=== PATIENT | female | born 1995 | race American Indian/Alaskan Native ===

== ENCOUNTER 2018-07-27 16:45 | Inpatient (IN) | payer OTHER ==
[2018-07-27] MEDS ORDERED: Sodium Chloride 0.9% 1,000 ML IV ONE (17:22)
[2018-07-27 17:31] LABS: BASO % 0.3 % (0.0-2.0); LYMPH # 1.6 K/uL (1.0-4.3); LYMPH % 11.2 % (20.0-40.0); MEAN CELL VOLUME 88.9 fL (81.0-99.0); MEAN CORPUSCULAR HEMOGLOBIN 29.7 pg (27.0-31.0); MEAN CORPUSCULAR HGB CONC 33.5 g/dL (33.0-37.0); MEAN PLATELET VOLUME 7.4 fL (7.2-11.7); MONO # 0.5 K/uL (0.0-0.8); MONO % 3.7 % (0.0-10.0); NEUT # 11.7 K/uL (1.8-7.0); NEUT % 84.8 % (50.0-75.0); RBC 4.38 Mil/uL (3.80-5.20); RED CELL DISTRIBUTION WIDTH 13.7 % (11.5-14.5); WHITE BLOOD COUNT 13.8 K/uL (4.8-10.8)
[2018-07-27 17:44] LABS: ALB/GLOB RATIO 1.2 (1.0-2.1); ALBUMIN 4.3 g/dL (3.5-5.0); ALT/SGPT 14 U/L (9-52); AST/SGOT 17 U/L (14-36); BLOOD UREA NITROGEN 9 mg/dL (7-17); CALCIUM 9.5 mg/dl (8.6-10.4); GFR NON-AFRICAN AMERICAN > 60; LIPASE 57 U/L (23-300)
--- NOTE | 2018-07-27 18:22 | C.PDOC ---
History Of Present Illness 23 y/o female presents to the ED with complaints of right-sided abdominal pain associated with nausea, vomiting, and chills. She had an episode on Thursday which resolved that day, then another episode on Thursday which resolved. Pain then recurred today prompting patient to come in for evaluation. She denies any associated diarrhea, dysuria, urinary frequency, or vaginal discharge. Of note, patient states started her menses today. No sick contacts. No recent travel. Denies hx of prior similar pain in the past. <Giuliana Shea - Last Filed: 07/27/18 18:44> History Per: Patient History/Exam Limitations: no limitations Onset/Duration Of Symptoms: Hrs, Intermittent Episodes Current Symptoms Are (Timing): Still Present Location Of Pain/Discomfort: RUQ, RLQ Associated Symptoms: Chills, Nausea, Vomiting Recent travel outside of the [place]: No Last Menstral Period: today <Giuliana Shea - Last Filed: 07/27/18 18:44> <Michelet Douglas - Last Filed: 07/27/18 20:21> Time Seen by Provider: 07/27/18 17:02 Chief Complaint (Nursing): Abdominal Pain Past Medical History Reviewed: Historical Data, Nursing Documentation, Vital Signs Vital Signs: Last Vital Signs Temp 97.9 F 07/27/18 17:17 Pulse 84 07/27/18 17:17 Resp 20 07/27/18 17:17 BP 122/77 07/27/18 17:17 Pulse Ox 98 07/27/18 17:17 - Medical History PMH: No Chronic Diseases Other Surgeries: DNC Family History: States: No Known Family Hx - Social History Hx Alcohol Use: No Hx Substance Use: No - Immunization History Hx Tetanus Toxoid Vaccination: Yes Hx Influenza Vaccination: No <Giuliana Shea - Last Filed: 07/27/18 18:44> Vital Signs: Last Vital Signs Temp 97.9 F 07/27/18 17:17 Pulse 84 07/27/18 17:17 Resp 20 07/27/18 17:17 BP 122/77 07/27/18 17:17 Pulse Ox 98 07/27/18 18:48 <Michelet Douglas - Last Filed: 07/27/18 20:21> Review Of Systems Except As Marked, All Systems Reviewed And Found Negative. Constitutional: Positive for: Chills Respiratory: Negative for: Shortness of Breath Gastrointestinal: Positive for: Nausea, Vomiting, Abdominal Pain (right-sided). Negative for: Diarrhea, Hematochezia, Hematemesis Genitourinary: Positive for: Vaginal Bleeding (states currently menstruating). Negative for: Dysuria, Frequency, Vaginal Discharge Musculoskeletal: Negative for: Back Pain Neurological: Negative for: Dizziness <Giuliana Shea - Last Filed: 07/27/18 18:44> Physical Exam - Physical Exam Appears: Non-toxic, Other (uncomfortable) Skin: Normal Color, Warm, Dry Head: Atraumatic, Normacephalic Eye(s): bilateral: Normal Inspection, EOMI Nose: Normal Oral Mucosa: Moist Neck: Normal ROM, Supple Chest: Symmetrical Cardiovascular: Rhythm Regular, No Murmur Respiratory: Normal Breath Sounds, No Rales, No Rhonchi, No Wheezing Gastrointestinal/Abdominal: Soft, Tenderness (right-sided abominal and pelvic tenderness), No Distention, No Guarding Back: No CVA Tenderness, No Vertebral Tenderness Extremity: Bilateral: Atraumatic, Normal Color And Temperature, Normal ROM Neurological/Psych: Oriented x3, Normal Speech, Other (No focal deficits) <Giuliana Shea - Last Filed: 07/27/18 18:44> ED Course And Treatment - Laboratory Results Result Diagrams: 07/27/18 17:28 07/27/18 17:28 O2 Sat by Pulse Oximetry: 98 (RA) Pulse Ox Interpretation: Normal Progress Note: Blood work and urine sent to lab for analysis. CT abd/pelvis ordered with IV contrast. Patient treated with IV fluids, 30mg Toradol, and 4mg Zofran IVP. 17:22 Informed of (+) by RN, who completed urine POC. CT scan canceled. Patient notified of result. Pelvic/transvag ultrasound ordered. Case endorsed to Dr Douglas pending US and re-evaluation. <Giuliana Shea - Last Filed: 07/27/18 18:44> - Laboratory Results Result Diagrams: 07/27/18 17:28 07/27/18 17:28 Pulse Ox Interpretation: Normal Progress Note: 7:[address] coleman,material cutter, re: US finding. will come and see the patient. Spoke with the pt - is aware of the US diagnosis <Michelet Douglas - Last Filed: 07/27/18 20:21> Disposition - Disposition Disposition Time: 18:48 <JezGiuliana rodriguez - Last Filed: 07/27/18 18:44> Discussed With : Keiko Melendez - POA Present On Arrival: None <Michelet Douglas - Last Filed: 07/27/18 20:21> - Disposition Disposition: HOSPITALIZED Condition: FAIR Forms: [employer] ([place]ese) - Clinical Impression Clinical Impression: Abdominal pain, Ectopic - PA / PHOTOGRAPHER APPRENTICE / Resident Statement MD/DO has reviewed & agrees with the documentation as recorded. - Scribe Statement The provider has reviewed the documentation as recorded by the Scribe (Marisa Gramajo) All medical record entries made by the Scribe were at my direction and personally dictated by me. I have reviewed the chart and agree that the record accurately reflects my personal performance of the history, physical exam, medical decision making, and the department course for this patient. I have also personally directed, reviewed, and agree with the discharge instructions and disposition. <Giuliana Shea - Last Filed: 07/27/18 18:44> Decision To Admit <Giuliana Shea - Last Filed: 07/27/18 18:44> - Pt Status Changed To: Hospital Disposition Of: Inpatient - Admit Certification Admit to Inpatient:: After my assessment, the patient will require hosp italization for at least two midnights. This is because of the severity of symptoms shown, intensity of services needed, and/or the medical risk in this patient being treated as an outpatient. - InPatient: Physician Admission Certification:: After my assessment, the patient will require hospitalization for at least two midnights. This is because of the hunter rity of symptoms shown, intensity of services needed, and/or the medical risk in this patient being treated as an outpatient. - . Bed Request Type: Regular Admitting Physician: Keiko Melendez <Michelet Douglas - Last Filed: 07/27/18 20:21> - . Patient Diagnosis: Abdominal pain, Ectopic
[2018-07-27 18:33] LABS: SQUAMOUS EPITHIAL 5 /hpf (0-5); URINE BACTERIA RARE (<OCC); URINE BILIRUBIN NEGATIVE (NEGATIVE); URINE BLOOD 3+ (NEGATIVE); URINE CLARITY Hazy (Clear); URINE COLOR Yellow (YELLOW); URINE GLUCOSE (UA) NORMAL (Normal); URINE LEUKOCYTE ESTERASE NEG Leu/uL (Negative); URINE PROTEIN 1+ mg/dL (NEGATIVE); URINE UROBILINOGEN NORMAL mg/dL (0.2-1.0)
[2018-07-27 18:38] LABS: HCG,QUALITATIVE URINE POSITIVE (NEGATIVE)
[2018-07-27] MEDS ORDERED: ceFAZolin IV 2 gm in Dextrose 2 GM/50 ML BAG IVPB ONE (20:23)
[2018-07-27] MEDS ORDERED: Lactated Ringer's 1,000 ML IV SCH (20:30)
--- NOTE | 2018-07-27 20:32 | CP.PCM.HP ---
History of Present Illness - History of Present Illness History of Present Illness: 23 y.o. , LMP 06/19/15, normal, presented c/o worsening RLQ pain, pain scale 10/10 earlier today. Associated with nausea and vomiting -"I vomited all day long". Denies dizziness, lightheadedness or loss of consciousness. Just fo und out about being in E.D. Pain first onset last Thursday; came and left. Occurred again Thursday - similar, short lasting. Returned today. USG: no IUP, right adnexal mass, (+) free fluid.. quantitative HCG 1866.9 mIU. 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 Denies STIs. Last pap 01/22/17 - negative PMH: denies PSH: D&C x 2 NKDA Food allergies: mushroom and peanuts - conjunctivitis Meds: none Soc (+) cigar - one a day. (+) marijuana - 3 times a day. Occ EtOH use. Lives with boyfriend; together "little over 1 year". Works at [employer] Hx: Mother alive 60 - asthma. Father approx 70s - DM. One mat aunt - breast cancer. Present on Admission - Present on Admission Any Indicators Present on Admission: No Review of Systems - Review of Systems All systems: reviewed and no additional remarkable complaints except - Reproductive: Female Reproductive:Female: As Per HPI Past Patient History - Infectious Disease Hx of Infectious Diseases: None - Past Social History Smoking Status: Light Smoker < 10 Cigarettes Daily Cigar Use: Yes Alcohol: Occasional Drugs: Cannabis Home Situation {Lives}: Friends Domestic Violence: Negative - CARDIAC Hx Cardiac Disorders: No - PULMONARY Hx Respiratory Disorders: No - NEUROLOGICAL Hx Neurological Disorder: No - HEENT Hx HEENT Problems: No - RENAL Hx Chronic Kidney Disease: No - ENDOCRINE/METABOLIC Hx Endocrine Disorders: No - HEMATOLOGICAL/ONCOLOGICAL Hx Blood Disorders: No - INTEGUMENTARY Hx Dermatological Problems: No - MUSCULOSKELETAL/RHEUMATOLOGICAL Hx Musculoskeletal Disorders: No - GASTROINTESTINAL Hx Gastrointestinal Disorders: No - GENITOURINARY/GYNECOLOGICAL Hx Genitourinary Disorders: No - PSYCHIATRIC Hx Psychophysiologic Disorder: No Hx Substance Use: No - SURGICAL HISTORY Hx Surgeries: Yes Hx Dilation and Curettage: Yes (2017 x 2) - ANESTHESIA Hx Anesthesia: Yes Meds Allergies/Adverse Reactions: Allergies Allergy/AdvReac Type Severity Reaction Status Date / Time mushroom Allergy Verified 07/27/18 16:55 nut - unspecified Allergy Verified 07/27/18 16:55 Physical Exam - Constitutional Appears: Well, No Acute Distress - Head Exam Head Exam: NORMAL INSPECTION - Eye Exam Eye Exam: Normal appearance - ENT Exam ENT Exam: Mucous Membranes Moist - Neck Exam Neck exam: Positive for: Full Rom - Respiratory Exam Respiratory Exam: NORMAL BREATHING PATTERN - Cardiovascular Exam Cardiovascular Exam: REGULAR RHYTHM - GI/Abdominal Exam GI & Abdominal Exam: Normal Bowel Sounds, Soft ((+) RLQ rebound tenderenss) - Exam Additional comments: Deferred to the O.R. - Back Exam Back exam: NORMAL INSPECTION - Neurological Exam Neurological exam: Alert, Oriented x3 - Psychiatric Exam Psychiatric exam: Normal Affect, Normal Mood - Skin Skin Exam: Dry, Intact, Normal Color, Warm Results - Vital Signs Recent Vital Signs: Last Vital Signs Temp 97.9 F 07/27/18 17:17 Pulse 84 07/27/18 17:17 Resp 20 07/27/18 17:17 BP 122/77 07/27/18 17:17 Pulse Ox 98 07/27/18 18:48 - Labs Result Diagrams: 07/27/18 17:28 07/27/18 17:28 Labs: Laboratory Results - last 24 hr 07/27/18 07/27/18 07/27/18 17:28 17:28 18:21 WBC 13.8 H RBC 4.38 Hgb 13.0 Hct 38.9 MCV 88.9 MCH 29.7 MCHC 33.5 RDW 13.7 Plt Count 376 MPV 7.4 Neut % (Auto) 84.8 H Lymph % (Auto) 11.2 L [place] % (Auto) 3.7 Eos % (Auto) 0.0 Baso % (Auto) 0.3 Neut # (Auto) 11.7 H Lymph # (Auto) 1.6 [place] # (Auto) 0.5 Eos # (Auto) 0.0 Baso # (Auto) 0.0 Sodium 138 Potassium 4.2 Chloride 103 Carbon Dioxide 23 Anion Gap 16 BUN 9 Creatinine 0.7 Est GFR ( Amer) > 60 Est GFR (Non-Af Amer) > 60 Random Glucose 117 H Calcium 9.5 Total Bilirubin 0.7 AST 17 ALT 14 Alkaline Phosphatase 73 Total Protein 7.7 Albumin 4.3 Globulin 3.5 Albumin/Globulin Ratio 1.2 Lipase 57 Beta HCG, Quant Urine Color Yellow Urine Clarity Hazy Urine pH 5.0 Ur Specific [place] 1.019 Urine Protein 1+ H Urine Glucose (UA) Normal Urine Ketones 1+ H Urine Blood 3+ H Urine Nitrate Negative Urine Bilirubin Negative Urine Urobilinogen Normal Ur Leukocyte Esterase Neg Urine WBC (Auto) 9 H Urine RBC (Auto) 274 H Ur Squamous Epith Cells 5 Urine Bacteria Rare Urine HCG, Qual Positive Blood Type Antibody Screen 07/27/18 07/27/18 18:35 18:35 WBC RBC Hgb Hct MCV MCH MCHC RDW Plt Count MPV Neut % (Auto) Lymph % (Auto) [place] % (Auto) Eos % (Auto) Baso % (Auto) Neut # (Auto) Lymph # (Auto) [place] # (Auto) Eos # (Auto) Baso # (Auto) Sodium Potassium Chloride Carbon Dioxide Anion Gap BUN Creatinine Est GFR ( Amer) Est GFR (Non-Af Amer) Random Glucose Calcium Total Bilirubin AST ALT Alkaline Phosphatase Total Protein Albumin Globulin Albumin/Globulin Ratio Lipase Beta HCG, Quant 1866.90 Urine Color Urine Clarity Urine pH Ur Specific [place] Urine Protein Urine Glucose (UA) Urine Ketones Urine Blood Urine Nitrate Urine Bilirubin Urine Urobilinogen Ur Leukocyte Esterase Urine WBC (Auto) Urine RBC (Auto) Ur Squamous Epith Cells Urine Bacteria Urine HCG, Qual Blood Type O POSITIVE Antibody Screen Negative Assessment & Plan - Assessment and Plan (Free Text) Assessment: 28 y.o. G3 [id number], right ectopic . D/W patient surgical management: R/B/C reviewed. Patient expressed an understanding and agrees with plan. No questions offered. Consents signed, dated, witnessed and placed in chart. Patient last ate last night. Patient is clinically stable Plan: Admit NPO IVFs Kefzol 2 grams wellness consultant to O.R. Patient wellness consultant to O.R. - Date & Time Date: 07/27/18 Time: 20:38
[2018-07-27] MEDS ORDERED: Doxycycline 100 mg Inj ONE (20:34)
[2018-07-27] MEDS ORDERED: Oxytocin 10 Units/ml Inj ONE (20:35)
[2018-07-27] MEDS ORDERED: Lactated Ringer's 1,000 ML ONE (20:49)
[2018-07-27] MEDS ORDERED: Midazolam 2 MG/2 ML VIAL ONE (21:01)
[2018-07-27] MEDS ORDERED: Propofol 10 mg/ml Inj (20 ML) ONE (21:01)
[2018-07-27] MEDS ORDERED: Rocuronium 10 mg/ml (5 ml) ONE (21:04)
[2018-07-27] MEDS ORDERED: Succinylcholine Chloride 20 mg/ml Syr (5 ml) IV ONE (21:04)
[2018-07-27] MEDS ORDERED: ceFAZolin IV 1 gm in Dextrose 2 GM/100 ML BAG IVPB ONE (21:19)
[2018-07-27] MEDS ORDERED: Lidocaine Hydrochloride 10 ML INJ ONE (21:46)
[2018-07-27] MEDS ORDERED: Esmolol 100 mg/10ml Inj IV ONE (22:07)
[2018-07-27] MEDS ORDERED: Neostigmine Methylsulfate 3mg/3ml Syringe IV ONE (22:09)
[2018-07-27] MEDS ORDERED: Bupivacaine 0.25% 20 ML INJ IJ ONE (22:32)
--- NOTE | 2018-07-27 23:02 | PCM.SURG1 ---
Surgeon's Initial Post Op Note - Surgeon's Notes Surgeon: Keiko Melendze MD Vice President Diversity: Jose Herrera MD; Aure Wooten MD, PGY-3 Type of Anesthesia: General Endo Anesthesia Administered By: Johnny Leigh MD Pre-Operative Diagnosis: Right ectopic Operative Findings: EUA: cervical os closed, AV uterus, 8 weeks, soft, mobile, normal left adnexa; mildly prominent right adnexa. At laparoscopy: right ectopic , approx 3 x 3 x 5 cm. approximate 100 mL hemoperitoneum. Normal left fallopian tube; normal ovaries bilaterally Normal upper abdominal organ; no perihepatic adhesions Post-Operative Diagnosis: Right ectopic Operation Performed: right partial salpingectomy Specimen/Specimens Removed: right fallopian tube with ectopic Estimated Blood Loss: EBL {In ML}: 100 (75 mL; IVfs 1800 mL LR) Blood Products Given: N/A Drains Used: No Drains Post-Op Condition: Good Date of Surgery/Procedure: 07/27/18 Time of Surgery/Procedure: 23:06
[2018-07-27] MEDS: HYDROmorphone 0.5 mg/0.5 ml ISec IVP PRN ×2 (23:26→23:40)
[2018-07-28] MEDS ORDERED: Lactated Ringer's 1,000 ML IV ONE
[2018-07-28 08:49] LABS: MEAN CELL VOLUME 89.3 fL (81.0-99.0); MEAN CORPUSCULAR HEMOGLOBIN 29.9 pg (27.0-31.0); MEAN CORPUSCULAR HGB CONC 33.5 g/dL (33.0-37.0); MEAN PLATELET VOLUME 7.9 fL (7.2-11.7); RBC 3.61 Mil/uL (3.80-5.20); RED CELL DISTRIBUTION WIDTH 13.7 % (11.5-14.5)
[2018-07-28 08:51] LABS: WHITE BLOOD COUNT 21.1 K/uL (4.8-10.8)
[2018-07-28 08:52] LABS: HEMOGLOBIN 10.8 g/dL (11.0-16.0)
--- NOTE | 2018-07-28 09:37 | US ---
Date of service: 07/27/2018 HISTORY: Abdominal pain COMPARISON: None available. TECHNIQUE: Transabdominal and transvaginal pelvic ultrasound was performed. FINDINGS: UTERUS: Measures 6.7 x 4.1 x 4.6 cm. Anteverted and normal in size. No fibroid or other mass lesion seen. ENDOMETRIUM: Measures 5.0 mm in diameter. The central endometrial echo complex is normal in appearance. No evidence of intrauterine gestational sac. CERVIX: No cervical abnormality identified. RIGHT OVARY: Measures 3.0 x 1.9 x 3 point cm. There is a 5.8 x 3.2 x 3.9 cm complex mass in the right adnexa with central round anechoic area and surrounding echogenic rim with peripheral increased vascularity. Normal flow. There is a 1.4 x 0.9 x 1.8 cm simple cyst. LEFT OVARY: Measures 2.6 x 1.8 x 2.4 cm. No solid mass. Normal flow. FREE FLUID: There is moderate complex/hemorrhagic fluid in the pelvis. OTHER FINDINGS: None. IMPRESSION: 5.8 x 3.2 x 3.9 cm complex mass with peripheral increased vascularity in the right adnexa and complex presumable hemorrhagic fluid in the pelvis, ectopic is a consideration. Clinical follow-up is advised. No evidence for intrauterine gestation. A preliminary report was provided by [facility].
[2018-07-28 10:33] VITALS: RESP 18
[2018-07-28 10:34] VITALS: TEMP 97; O2SAT 99
[2018-07-28] MEDS ORDERED: Oxycodone/Acetaminophen 5/325 mg Tab PO PRN ×2 (11:22→11:24)
[2018-07-28] MEDS: Simethicone 80 mg Chewtab PO SCH ×2 (11:59→18:38)
[2018-07-28 13:54] LABS: BASO # 0.1 K/uL (0.0-0.2); BASO % 0.3 % (0.0-2.0); EOS # 0.1 K/uL (0.0-0.7); EOS % 0.5 % (0.0-4.0); HEMOGLOBIN 10.1 g/dL (11.0-16.0); LYMPH # 4.1 K/uL (1.0-4.3); LYMPH % 23.9 % (20.0-40.0); MEAN CELL VOLUME 88.7 fL (81.0-99.0); MEAN CORPUSCULAR HEMOGLOBIN 30.2 pg (27.0-31.0); MEAN PLATELET VOLUME 7.9 fL (7.2-11.7); MONO # 1.2 K/uL (0.0-0.8); MONO % 7.1 % (0.0-10.0); NEUT # 11.7 K/uL (1.8-7.0); NEUT % 68.2 % (50.0-75.0); RBC 3.36 Mil/uL (3.80-5.20); RED CELL DISTRIBUTION WIDTH 13.9 % (11.5-14.5); WHITE BLOOD COUNT 17.2 K/uL (4.8-10.8)
--- NOTE | 2018-07-28 16:22 | RAD ---
Date of service: 07/28/2018 HISTORY: Rule out infiltrate COMPARISON: No prior. TECHNIQUE: Chest PA and lateral FINDINGS: LUNGS: No active pulmonary disease. PLEURA: No significant pleural effusion identified. No pneumothorax apparent. CARDIOVASCULAR: No aortic atherosclerotic calcification present Cardiac size appears normal. No pulmonary vascular derangement identified. OSSEOUS STRUCTURES: No significant abnormalities. VISUALIZED UPPER ABDOMEN: Normal. OTHER FINDINGS: None. IMPRESSION: No acute cardiopulmonary disease appreciated.
--- NOTE | 2018-07-28 16:37 | CP.PCM.PN ---
Addendum entered and electronically signed by Kenia Guthrie 07/28/18 16:55: Correction to to A/P: Patient to be discharge later this evening Original Note: Subjective - Date & Time of Evaluation Date of Evaluation: 07/28/18 Time of Evaluation: 07:00 - Subjective Subjective: Gynecology progress note ( dynamics ax developer Hospitalist service) Patient was seen and examined at bedside. Patient reports controlled pain with current pain medications. Patient denies fever, chills, chest pain, palpitations but admits to SOB, abdominal pain ( S/p right partial salpingectomy), nausea, passing flatus and bowel movement. Objective - Vital Signs/Intake and Output Vital Signs (last 24 hours): Temp Pulse Resp BP Pulse Ox 97 F L 67 18 102/71 99 07/28/18 08:00 07/28/18 08:00 07/28/18 08:00 07/28/18 08:00 07/28/18 08:00 Intake and Output: 07/28/18 07/28/18 06:59 18:59 Intake Total 3115 Output Total 600 Balance 2515 - Medications Medications: Current Medications Hydromorphone HCl (Dilaudid) 0.5 mg IVP Q15M PRN PRN Reason: Pain, severe (8-10) Last Admin: 07/27/18 23:40 Dose: 0.5 mg Lactated Ringer's (Lactated Ringer's) 1,000 mls @ 125 mls/hr IV .Q8H ROGELIO Last Admin: 07/27/18 20:52 Dose: 125 mls/hr Morphine Sulfate (Morphine) 4 mg IVP Q4 PRN PRN Reason: Pain, moderate (4-7) Last Admin: 07/28/18 06:35 Dose: 4 mg Ondansetron HCl (Zofran Inj) 4 mg IVP DAILY@ONCE PRN PRN Reason: Nausea/Vomiting Oxycodone/Acetaminophen (Percocet 5/325 Mg Tab) 1 tab PO Q6H PRN PRN Reason: Pain, moderate (4-7) Stop: 07/31/18 11:23 Last Admin: 07/28/18 11:59 Dose: 1 tab Oxycodone/Acetaminophen (Percocet 5/325 Mg Tab) 2 tab PO Q6H PRN PRN Reason: Pain, severe (8-10) Stop: 07/31/18 11:25 Simethicone (Mylicon Chew Tab) 80 mg PO Q6 ROGELIO Last Admin: 07/28/18 11:59 Dose: 80 mg - Labs Labs: 07/28/18 13:49 07/27/18 17:28 - Constitutional Appears: Well, No Acute Distress - Head Exam Head Exam: ATRAUMATIC, NORMAL INSPECTION - Eye Exam Eye Exam: EOMI, Normal appearance - ENT Exam ENT Exam: Mucous Membranes Moist - Respiratory Exam Respiratory Exam: Clear to Ausculation Bilateral, NORMAL BREATHING PATTERN. absent: Chest Wall Tenderness, Prolonged Expiratory Phase, Rhonchi, Wheezes - Cardiovascular Exam Cardiovascular Exam: REGULAR RHYTHM, +S1, +S2. absent: Murmur - GI/Abdominal Exam GI & Abdominal Exam: Soft, Tenderness, Normal Bowel Sounds Additional comments: Appropriately tender s/p right partial salpingectomy Incision is clean,dry and intact - Extremities Exam Extremities Exam: Normal Inspection. absent: Calf Tenderness, Full ROM, Pedal Edema - Back Exam Back Exam: NORMAL INSPECTION. absent: CVA tenderness (L), CVA tenderness (R) - Neurological Exam Neurological Exam: Alert, Awake, Normal Gait, Oriented x3 - Psychiatric Exam Psychiatric exam: Normal Affect - Skin Skin Exam: Normal Color Assessment and Plan (1) Ectopic Assessment & Plan: S/P Right partial salpingectomy POD #1 Warren discontinued, voiding trial Monitor for bowel function Encourage ambulation and incentive spirometer use Encourage hydration Pain control for with percocet and motrin prn H/H stable Plans for discharge tomorrow Plans and management discussed with Dr. Rivera Status: Acute
[2018-07-28 16:46] VITALS: BP 100/70; PULSE 68
--- NOTE | 2018-07-28 17:14 | CP.PCM.DIS ---
Provider - Provider Date of Admission: 07/27/18 20:20 Attending physician: Keiko Melendez MD Time Spent in preparation of Discharge (in minutes): 35 Diagnosis - Discharge Diagnosis (1) Ectopic Status: Acute Hospital Course - Lab Results Lab Results: Most Recent Lab Values WBC 17.2 K/uL (4.8-10.8) H 07/28/18 13:49 RBC 3.36 Mil/uL (3.80-5.20) L 07/28/18 13:49 Hgb 10.1 g/dL (11.0-16.0) L 07/28/18 13:49 Hct 29.8 % (34.0-47.0) L 07/28/18 13:49 MCV 88.7 fL (81.0-99.0) 07/28/18 13:49 MCH 30.2 pg (27.0-31.0) 07/28/18 13:49 MCHC 34.0 g/dL (33.0-37.0) 07/28/18 13:49 RDW 13.9 % (11.5-14.5) 07/28/18 13:49 Plt Count 285 K/uL (130-400) 07/28/18 13:49 MPV 7.9 fL (7.2-11.7) 07/28/18 13:49 Neut % (Auto) 68.2 % (50.0-75.0) 07/28/18 13:49 Lymph % (Auto) 23.9 % (20.0-40.0) 07/28/18 13:49 [place] % (Auto) 7.1 % (0.0-10.0) 07/28/18 13:49 Eos % (Auto) 0.5 % (0.0-4.0) 07/28/18 13:49 Baso % (Auto) 0.3 % (0.0-2.0) 07/28/18 13:49 Neut # (Auto) 11.7 K/uL (1.8-7.0) H 07/28/18 13:49 Lymph # (Auto) 4.1 K/uL (1.0-4.3) 07/28/18 13:49 [place] # (Auto) 1.2 K/uL (0.0-0.8) H 07/28/18 13:49 Eos # (Auto) 0.1 K/uL (0.0-0.7) 07/28/18 13:49 Baso # (Auto) 0.1 K/uL (0.0-0.2) 07/28/18 13:49 Differential Comment 07/28/18 08:15 Sodium 138 mmol/L (132-148) 07/27/18 17:28 Potassium 4.2 mmol/L (3.6-5.2) 07/27/18 17:28 Chloride 103 mmol/L (98-107) 07/27/18 17:28 Carbon Dioxide 23 mmol/L (22-30) 07/27/18 17:28 Anion Gap 16 (10-20) 07/27/18 17:28 BUN 9 mg/dL (7-17) 07/27/18 17:28 Creatinine 0.7 mg/dL (0.7-1.2) 07/27/18 17:28 Est GFR ( Amer) > 60 07/27/18 17:28 Est GFR (Non-Af Amer) > 60 07/27/18 17:28 POC Glucose (mg/dL) 84 mg/dL (65-110) 07/27/18 20:55 Random Glucose 117 mg/dL (65-105) H 07/27/18 17:28 Calcium 9.5 mg/dl (8.6-10.4) 07/27/18 17:28 Total Bilirubin 0.7 mg/dL (0.2-1.3) 07/27/18 17:28 AST 17 U/L (14-36) 07/27/18 17:28 ALT 14 U/L (9-52) 07/27/18 17:28 Alkaline Phosphatase 73 U/L (38-126) 07/27/18 17:28 Total Protein 7.7 g/dL (6.3-8.3) 07/27/18 17:28 Albumin 4.3 g/dL (3.5-5.0) 07/27/18 17:28 Globulin 3.5 gm/dL (2.2-3.9) 07/27/18 17:28 Albumin/Globulin Ratio 1.2 (1.0-2.1) 07/27/18 17:28 Lipase 57 U/L (23-300) 07/27/18 17:28 Beta HCG, Quant 1866.90 mIU/ML 07/27/18 18:35 Urine Color Yellow (YELLOW) 07/27/18 18:21 Urine Clarity Hazy (Clear) 07/27/18 18:21 Urine pH 5.0 (5.0-8.0) 07/27/18 18:21 Ur Specific [place] 1.019 (1.003-1.030) 07/27/18 18: Urine Protein 1+ mg/dL (NEGATIVE) H 07/27/18 18:21 Urine Glucose (UA) Normal mg/dL (Normal) 07/27/18 18: Urine Ketones 1+ mg/dL (NEGATIVE) H 07/27/18 18: Urine Blood 3+ (NEGATIVE) H 07/27/18 18:21 Urine Nitrate Negative (NEGATIVE) 07/27/18 18: Urine Bilirubin Negative (NEGATIVE) 07/27/18 18: Urine Urobilinogen Normal mg/dL (0.2-1.0) 07/27/18 18: Ur Leukocyte Esterase Neg [place]/uL (Negative) 07/27/18 18:21 Urine WBC (Auto) 9 /hpf (0-5) H 07/27/18 18:21 Urine RBC (Auto) 274 /hpf (0-3) H 07/27/18 18:21 Ur Squamous Epith Cells 5 /hpf (0-5) 07/27/18 18:21 Urine Bacteria Rare (<OCC) 07/27/18 18:21 Urine HCG, Qual Positive (NEGATIVE) 07/27/18 18: Blood Type O POSITIVE 07/27/18 18:35 Antibody Screen Negative 07/27/18 18:35 - Hospital Course Hospital Course: HPI (As per admission): 23 y.o. , LMP 06/19/15, normal, presented c/o worsening RLQ pain, pain scale 10/10 earlier today. Associated with nausea and vomiting -"I vomited all day long". Denies dizziness, lightheadedness or loss of consciousness. Just found out about being in E.D. Pain first onset last Thursday; came and left. Occurred again Thursday - similar, short lasting. Returned today. USG: no IUP, right adnexal mass, (+) free fluid.. quantitative HCG 1866.9 mIU. Hospital course: Patient was admitted with right ectopic , which was confirmed by pelvis US: 5.8 x 3.2 x 3.9 cm complex mass with peripheral increased vascularity in the right adnexa and complex presumable hemorrhagic fluid in the pelvis, ectopic is a consideration. Clinical follow-up is advised. No evidence for intrauterine gestation. Patient was arranged for the operating room with appropriate lab and team in place. Patient had a right partial salpingectomy without any complications. Patient remained stable post surgery with no acute issues. Patient was able to tolerate diet, void without any difficulties after Warren was removed and ambulated with some mild shortness breath, however, pulse ox was 98-100% on ambulation and chest x-ray was with no active cardiopulmonary issues. Patient was able to further ambulate again during a second round with no acute issues. Patient was discharged upon clearance with appropriate instructions and prescription. Discharge Exam - Head Exam Head Exam: ATRAUMATIC, NORMAL INSPECTION - Eye Exam Eye Exam: EOMI, Normal appearance - ENT Exam ENT Exam: Mucous Membranes Moist - Respiratory Exam Respiratory Exam: Clear to PA & Lateral, NORMAL BREATHING PATTERN. absent: Decreased Breath Sounds, Prolonged Expiratory Phase, Rales, Wheezes, Respiratory Distress - Cardiovascular Exam Cardiovascular Exam: REGULAR RHYTHM, +S1, +S2. absent: Tachycardia, Clicks, Diastolic murmur, Systolic Murmur - GI/Abdominal Exam GI & Abdominal Exam: Normal Bowel Sounds, Soft, Tenderness Additional comments: Appropriately tender s/p right partial salpingectomy Incision is clean,dry and intact - Extremities Exam Extremities exam: normal inspection - Back Exam Back exam: NORMAL INSPECTION. absent: CVA tenderness (L), CVA tenderness (R) - Neurological Exam Neurological exam: Alert, Normal Gait, Oriented x3 - Skin Skin Exam: Normal Color Discharge Plan - Discharge Medications Prescriptions: Ibuprofen [Motrin Tab] 800 mg PO Q6H PRN #15 tab PRN Reason: Pain, Moderate (4-7) - Follow Up Plan Condition: FAIR Disposition: HOME/ ROUTINE Instructions: Laparoscopy, Oophorectomy (DC), Ectopic (DC) Additional Instructions: Please discharge patient home Please follow up with your Tear Down Worker/Clinic in 1 week of discharge for incision check Please continue to hydrate, ambulate and no heavy lifting in 1-2 weeks Please take percocet and motrin for pain as needed Please return to the hospital if symptoms of abnormal abdominal pain, vaginal bleeding, abnormal vaginal discharge, fever, chills or nausea Please take care
[2018-07-28] MEDS ORDERED: Influenza Vaccine 60 MCG/0.5 ML SYR (3 yr & up) IM ONE (17:31)
--- NOTE | 2018-07-29 01:51 | OP ---
PROCEDURE DATE: 07/27/2018 SURGEON: Keiko Melendez MD COKE DRAWER: Jose Herrera MD SECOND FOOD PORTER: Aure Wooten DO, PGY-3 ANESTHESIOLOGIST: Johnny Leigh MD ANESTHESIA TYPE: General with endotracheal intubation. PREOPERATIVE DIAGNOSIS: Right ectopic . POSTOPERATIVE DIAGNOSIS: Right ectopic . OPERATIVE FINDINGS: Examination under anesthesia revealed cervical os was closed, anteverted uterus, 8 weeks in size, soft and mobile, normal left adnexa, and slightly full right adnexa. At laparoscopy, right ectopic , approximately 3 x 3 x 5 cm with an approximate 100 mL hemoperitoneum. Normal left ovary and normal left fallopian tube; normal right ovary and upper abdominal organs, no orlin-hepatic adhesions. OPERATION PERFORMED: Right partial salpingectomy. SPECIMEN: Right fallopian tube with ectopic . ESTIMATED BLOOD LOSS: 100 mL. URINE OUTPUT: 75 mL. INTRAVENOUS FLUIDS: 1800 mL of LR. BLOOD PRODUCTS: None. COMPLICATIONS: None. DESCRIPTION OF PROCEDURE: The patient was taken to the operating room after having obtained informed consent for the anticipated procedure. This included a discussion of risks and possible complications including but not limited to infection requiring antibiotics, hemorrhage requiring blood transfusion, having to convert the laparoscopy to laparotomy, repair of any damage to internal organs, removal of all diseased tissues. No questions were offered. Consent forms were signed, dated, witnessed, and placed in the chart. The patient was then transferred to the waiting room for the operating room. The patient was subsequently transferred to the operating room. She was placed on the operating room table in supine position and general anesthesia was administered without incident. The patient received Cefazolin 2 grams intravenous piggyback x1. The patient was then positioned in a dorsal lithotomy position and she was placed in Lopez stirrups. The abdomen was prepped and the vagina also was subsequently prepped and she was draped in usual sterile fashion. Examination under anesthesia was performed with the findings as above. Warren catheter was inserted under sterile condition. A weighted speculum was then placed in the posterior vaginal vault. Using a Mathur retractor, the cervix was visualized and was grasped on its anterior lip using a single-toothed tenaculum. The uterus was sounded to 8 cm. The HUMI uterine manipulator was inserted without incident. The weighted speculum was removed and attention was then directed to the abdomen. Using an 11-blade scalpel, a stab wound was made in the umbilical fold. Using a Veress needle, adequate and safe placement in the abdominal cavity was confirmed. No blood, bowel, or feces was retrieved; the pneumoperitoneum was created. The umbilical incision was then extended to allow a 5-mm trocar, which was inserted without incident. Once in the abdominal cavity, visualizing pelvic organs, the findings as noted above were made known. The decision was made to place a 5-mm trocar in the right lower quadrant and a 10-mm trocar in the left lower quadrant, each of these was placed under direct visualization. Suction and irrigation were performed and the right fallopian tube was then grasped in the isthmic portion thereby elevating it. Using the LigaSure, right partial salpingectomy was performed. The specimen was placed in the EndoCatch and removed under direct visualization. Review of the upper abdominal organs revealed normal liver and no perihepatic adhesions. Copious irrigation and suction were performed. FloSeal was then placed along the operative site and hemostasis was assured. The 11 mm left lower quadrant incision was closed using the Juan-Martin closure device on the fascia. The skin was reapproximated using 4-0 Monocryl in a subcuticular manner in all of the incisional sites. 10 mL of 0.25% Marcaine had been infiltrated into the three operative sites. Steri-Strips were applied as were pressure dressings. Attention was then directed to the vagina. Using a weighted speculum and under direct visualization, the HUMI manipulator was removed without incident. Hemostasis was assured. The patient was repositioned in a supine position. She was extubated and allowed to arise from anesthesia and transferred to the Post Anesthesia Care Unit in stable condition. Dr. Jose Herrera was present throughout the procedure. His presence was necessary for adequate visualization of the operative field at all times; to assist in the safe and atraumatic removal of the specimen; and to assist in assuring adequate hemostasis. Keiko Melendez MD [place]
== END 2018-07-28 19:05 | disposition home or self-care (01) | DRG 545 ==
LOC: C.ER 16:45 → C.4M 20:20
PROVIDERS: ADMIT Obstetrics & Gynecology; ATTEND Obstetrics & Gynecology
PROC: 0UB54ZZ Excision of Right Fallopian Tube, Percutaneous Endoscopic Approach (ICD-10-PCS; 2018-07-27)
PROC: 10T24ZZ Resection of Products of Conception, Ectopic, Percutaneous Endoscopic Approach (ICD-10-PCS; principal; 2018-07-27 21:30)
DX: O00.101 Right tubal pregnancy without intrauterine pregnancy (principal); F17.210 Nicotine dependence, cigarettes, uncomplicated; O00.90 Unspecified ectopic pregnancy without intrauterine pregnancy